=== PATIENT | female | born 1950 | race Caucasian/White ===

== ENCOUNTER 2017-10-23 13:01 | Day surgery (SDC) | payer OTHER ==
[~2017-10-23] VITALS: Ht 175.3 cm; Wt 89.8 kg
[~2017-10-23 13:01] MED LIST: ASPI-94 PO; DIVA250ER PO; HYDR12.56 PO; IBUP-238 PO; LISI2.5T3 PO; SIMV5TAB32 PO; TYLE3 PO
[2017-10-23] MEDS ORDERED: IOHEXOL 350 MG/ML 50 ML BTL (for Cath Lab) OTHER ONE (13:02)
[2017-10-23] MEDS ORDERED: SODIUM BICARBONATE 100 MEQ in D5W 1000 ML IV SCH (13:30)
[2017-10-23] MEDS ORDERED: SODIUM CHLORIDE 0.9% FLUSH 10 ML FLUSH IV FLUSH PRN ×2 (14:00)
[2017-10-23 14:31] LABS: BICARBONATE 27.4 MEQ/L (21.0-32.0); CALCIUM 9.5 MG/DL (8.5-10.1); CREATININE 1.05 MG/DL (0.50-1.00)
--- NOTE | 2017-10-23 14:57 | PD.VS.PN ---
Pre-operative Note Pre-operative diagnosis: B LE claudication Planned procedure: angiogram and potential intervention Interval History: Pt feeling well, ready for OR Labs: Laboratory Results Test 10/23/17 14:02 Anion Gap 9 MEQ/L (5-15) Blood Urea Nitrogen 23 MG/DL (7-18) Creatinine 1.05 MG/DL (0.50-1.00) Random Glucose 79 MG/DL (74-106) Calcium Level 9.5 MG/DL (8.5-10.1) Sodium Level 140 MEQ/L (136-145) Potassium Level 3.8 MEQ/L (3.5-5.1) Chloride Level 104 MEQ/L (98-107) Carbon Dioxide Level 27.4 MEQ/L (21.0-32.0) Blood: none needed Orders: NPO Operative site marked: No (bilateral) Consent: Informed consent has been obtained from Raine Ty. I have explained the procedure in detail and discussed the risks, benefits, and potential complications. All questions have been answered. Dk Ordaz MD Oct 23, 2017 14:57
[2017-10-23] MEDS ORDERED: HEPARIN-NS/PF FLUSH BAG 1,000 ML IV FLUSH ONE (15:03)
[2017-10-23] MEDS ORDERED: HEPARIN SODIUM - IV 10,000 UNITS/10 ML VIAL ONE (15:04)
[2017-10-23] MEDS ORDERED: MIDAZOLAM HCL 2 MG/2 ML VIAL ONE (15:04)
[2017-10-23] MEDS ORDERED: ONDANSETRON HCL 4 MG/2 ML VIAL ONE (15:21)
[2017-10-23 15:39] VITALS: BP 154/84; PULSE 81; RESP 18; TEMP 97.8; O2SAT 97
[2017-10-23] MEDS ORDERED: LISI-515 PO (15:46)
[2017-10-23] MEDS ORDERED: LEVOTAB PO (15:46)
[2017-10-23] MEDS ORDERED: HYDR25TA5 PO (15:46)
[2017-10-23] MEDS ORDERED: ASPI1TAB57 PO (15:46)
[2017-10-23] MEDS ORDERED: NIAC500T5 PO (15:46)
[2017-10-23] MEDS ORDERED: FISHCAP4 PO (15:46)
[2017-10-23] MEDS ORDERED: TRAM50TA PO (15:46)
[2017-10-23] MEDS ORDERED: VITA500012 PO (15:46)
[2017-10-23] MEDS ORDERED: REDPOW (15:46)
[2017-10-23] MEDS ORDERED: DIVA250T PO (15:46)
[2017-10-23] MEDS ORDERED: ALBU0.08 NEB (15:46)
[2017-10-23] MEDS ORDERED: ALLO300T2 PO (15:46)
--- NOTE | 2017-10-23 15:58 | HHI.PR ---
cc: Dk Ordaz MD Immediate Post Op Note Procedure Date: Oct 23, 2017 Pre Op Diagnosis: B LE claudication Post Op Diagnosis: B LE claudication Surgeon: Dk Ordaz Coal Feeder Operator(s): none Procedure: 1. Aortogram 2. R ESTEPHANIA orbital atherectomy and PHOTO FINISHER (7mm) 3. R DRAIN CLEANER PLUMBER Angioseal Findings: 1. Total occlusion L EIA 2. R ESTEPHANIA focal calcific stenosis Complications: none Specimen(s) removed: none Estimated blood loss: 10mL Anesthesia: MAC Drains: None Patient to: Other (DOCU) Patient Condition: Good Date/Time of Procedure: SEE SURGICAL CARE RECORD Dk Ordaz MD Oct 23, 2017 15:58
--- NOTE | 2017-10-23 16:10 | CATHPROC ---
[employer] HIS Report Study Information Study Number Admission Scheduled Start Study Start [id number] Oct 23 2017 1:01PM 10/23/2017 Oct 23 2017 3:04PM [place] [facility] Cath Endovascular Study Admit Source Facility Department [facility] - Peace Officer Physician and Clinical Staff Initial MD Ordaz, Dk Hospital Carrier Rachell Freedman,RN Recorder Casimiro Martinez,RT(R) Recorder Magdalene Valenzuela,RT(R) (BS) Scrub Yung Blackwell,RT(R) Procedures Performed Procedure Location (Site) Vessel Name Abdominal Angiogram Abd Aorta (A3) Aorta CARE TRANSITIONS NURSE Fem R. Com (R7) Femoral Art CARE TRANSITIONS NURSE Iliac R. Com. (R4) [place] Art. Wire insertion Fem Art (right) Femoral Art Equipment Time Roof Slater Description Size Mfg Part Number Used/Scraped [id number] 15:07 ANGIO-DYNAMICS OMNI FLUSH 65CM CATHETER FR 4 Used *[id number] DBP- CARDIOVASCULAR CATHETER, STEALTH SOLID 15:42 [id number] Used SYSTEMS INC. 2.0MM *[id number] CARDIOVASCULAR [id number] 15:37 WIRE, FIRM (VIPER) 335 Used SYSTEMS INC. *[id number] INTRODUCER SET, 15:07 COOK INC. FR 5 [id number] *[id number] Used MICROPUNCTURE, STIFFENED CATHETER, STRAIGHT TEMPO [id number] 15:40 CORDIS/ TREV FR 4 Used AQUA 65CM *[id number] 15:29 CORDIS/ TREV SHEATH, FR6 BRITE TIP 11CM FR 6 11CM [id number] Used WIRE, STORQ STANDARD MOD J [id number] 15:29 CORDIS/ TREV 300CM Used 300CM *[id number] 15:34 DAIG/ST. NOE MEDICAL ANGIOSEAL, FR6 VIP FR 6 Used *[id number] BALLOON, ADMIRAL EXTREME 7 [id number] 15:32 [employer]EC [employer] 130CM Used X 40 130CM *[id number] 15:07 [employer]. PACK, CCL CUSTOM * Used *[id number] 15:07 [employer] MEDICAL PRESSURE TUBING 48" 48" [id number] Used [id number] 15:07 NAMIC TUBING, HIGH PRESSURE 20" 20" Used *[id number] TUBING, PRESSURE INJECTION [id number] 15:07 NAMIC PACER 72" Used 72" *[id number] 15:07 NYCOMED OMNIPAQUE, 300 MG, 150ML 150ML [id number] Used 15:07 NYCOMED OMNIPAQUE, 300 MG, 50ML 50ML [id number] Used [id number] 15:07 BUCKLEY MEDICAL BLANKET,WARM AIR CCL * Used *[id number] 15:07 TERUMO MEDICAL SHEATH, FR4 TERUMO (10CM) FR 4 Used *[id number] WIRE, ANGLED GLIDE .035 [id number] 15:07 TERUMO MEDICAL/TREV 260CM Used 260CM *[id number] Equipment Model, Serial, Lot Number and Expiration Data Description Model Number Serial Number Lot Number Expiration Date ANGIOSEAL, FR6 VIP [id number] 07-03-2018 WIRE, FIRM (VIPER) 335 [id number] 06-02-2019 History: Allergies Allergy Reaction Codeine STATINS Labs Creatinine (mg/dl) 0.50-1.30 1.0 Medication Medication Total Dose (Bolus/Oral) Medication Total Dosage/Unit 1% XYLOCAINE 20 mL FENTANYL 50 mcg HEPARIN 3000 units VERSED 1 mg ZOFRAN 4 mg Medications (Bolus/Oral) Medication Time Given Dosage/Unit Administered By Reason VERSED 10/23/2017 3:17:13 PM 1 mg Rachell Freedman 1 mg VERSED given in lab by Rachell Freedman RN in Left Antecubital via Peripheral IV. FENTANYL 10/23/2017 3:18:21 PM 50 mcg Rachell Freedman 50 mcg FENTANYL given in lab by Rachell Freedman, JAQUELIN in Left Antecubital via Peripheral IV. 1% XYLOCAINE 10/23/2017 3:18:29 PM 20 mL Dk Ordaz 20 mL 1% XYLOCAINE given in lab by Dk Ordaz in Right Groin via Subcutaneous. ZOFRAN 10/23/2017 3:22:25 PM 4 mg Rachell Freedman 4 mg ZOFRAN given in lab by Rachell Freedman RN in Left Antecubital via Peripheral IV. HEPARIN 10/23/2017 3:28:40 PM 3000 units Rachell Freedman 3000 units HEPARIN given in lab by Rachell Freedman, JAQUELIN in Left Antecubital via Peripheral IV. Initial Case Assessment Cardiovascular NIBP 139/117 Edema Present Skin color Skin None Normal Warm Dry Circulatory - Right Pulses Femoral 1 Scale (0,1,2,3,4,d) Circulatory - Left Pulses Femoral 1 Scale (0,1,2,3,4,d) Circulatory - Lower Extremities Color Lower Right Color Lower Left Normal Normal Neurological State Oriented to time-place- Alert Moves all extremities person Chronological Log Time Study Chronological Log 15:01:46 Patient arrived via Bed. 15:01:50 Patient Name, D.O.B, / Armband Verified By R.N. 15:03:54 Consent signed by the physician and the patient and verified by the Peace Officer staff. 15:03:54 Pre-op and post- op instructions given; patient acknowledges understanding of instructions. 15:03:55 Verbal Stimulation=2 Physical Stimulation=2 Airway=2 Respiration=2 TOTAL=8. (0=absent, 1=li mited, 2=present) 15:03:57 Presedation assessment performed by Peace Officer RN. 15:04:00 Patient has been NPO for More than 6Hrs. 15:04:03 Patient Warmer Placed on the Table. Time Out. Correct patient, correct procedure, correct physician, power injector loaded with con trast with surgical team 15:05:39 present. Time Out Concurred by MD and individual staff in procedure. Vitals capture started with the following parameters, Patient=Adult, Interval=5 min, Initial Pr koetso=906 mmHg, 15:07:36 Deflation Rate=5 mmHg, Cuff placed on Right Ankle 15:08:08 Patient Warmer Placed on the Table. 15:08:09 HR=81 bpm, GXOL=895/117 mmhg, Resp=2 B/min, Rex=10, Gagnon=2 15:08:14 Liza Prominences Protected 15:08:14 A # 20 IV was noted in the Antecubital (left). Grade = 0 15:08:16 History and physical on the chart or being dictated. Assessment: Initial Case, YRLS=142/117 mmhg, Edema=None, Color=Normal, Skin = Warm, Dry Right Pulses: Femoral=1 Left Pulses: Femoral=1 15:08:17 Lower Right Extremities: Color=Normal Lower Left Extremities: Color=Normal Neurological: State=Alert, Ox3, WEBB 15:13:51 HR=82 bpm, KHBN=999/75 mmhg, SpO2=97.0 %, Resp=13 B/min, Rex=10, Gagnon=2 15:17:13 1 mg VERSED given in lab by Rachell Freedman RN in Left Antecubital via Peripheral IV. 15:18:11 HR=78 bpm, FLWY=488/83 mmhg, SpO2=96.0 %, Resp=17 B/min, Rex=10, Gagnon=2 15:18:11 Case Start 15:18:21 50 mcg FENTANYL given in lab by Rachell Freedman RN in Left Antecubital via Peripheral IV. 15:18:29 20 mL 1% XYLOCAINE given in lab by Dk Ordaz in Right Groin via Subcutaneous. 15:20:05 Access site was Right Femoral Artery. A INTRODUCER SET, MICROPUNCTURE, STIFFENED FR 5 was advanced into the Fem Art (right) using the 15:20:10 Percutaneous technique. A SHEATH, FR4 TERUMO (10CM) FR 4 was exchanged in the Fem Art (right). This was necessary in or fili to 15:20:16 accomodate a larger catheter. 15:22:25 4 mg ZOFRAN given in lab by Rachell Freedman RN in Left Antecubital via Peripheral IV. 15:23:47 HR=99 bpm, LASJ=234/117 mmhg, SpO2=93.0 %, Resp=29 B/min, Rex=10, Gagnon=2 A OMNI FLUSH 65CM CATHETER FR 4 was advanced over a wire. OMNIPAQUE, 300 MG, 150ML 150ML was us ed for 15:25:02 injections. 15:25:52 Through a OMNI FLUSH 65CM CATHETER FR 4, The Abdominal Aorta was injected with 10 cc's of c ontrast. 15:26:29 Through a OMNI FLUSH 65CM CATHETER FR 4, The Femoral Run-off was injected with 10 cc's per second. 15:28:21 HR=87 bpm, UUVH=128/86 mmhg, SpO2=89.0 %, Resp=16 B/min, Rex=10, Gagnon=2 15:28:40 3000 units HEPARIN given in lab by Rachell Freedman RN in Left Antecubital via Peripheral I V. A SHEATH, FR6 BRITE TIP 11CM FR 6 11CM was exchanged in the Fem Art (right). This was necessary in order to 15:30:47 accomodate a larger catheter. 15:30:54 A WIRE, STORQ STANDARD MOD J 300CM 300CM was inserted via Fem Art (right). 15:31:29 Reference ECG taken A BALLOON, ADMIRAL EXTREME 7 X 40 130CM 130CM was inserted over WIRE, STORQ STANDARD MOD J 300C M 15:31:46 300CM via the Iliac R. Com. (R4). 15:32:41 In the Fem R. Com (R7) a BALLOON, ADMIRAL EXTREME 7 X 40 130CM 130CM was inflated to 8 atms for 120 seconds. 15:33:18 HR=79 bpm, LVIU=110/86 mmhg, SpO2=93.0 %, Resp=18 B/min, Gagnon=2 15:38:00 Balloon Removed. 15:38:56 HR=95 bpm, SWGY=444/105 mmhg, SpO2=97.0 %, Resp=14 B/min, Rex=10, Gagnon=2 15:41:26 A WIRE, FIRM (VIPER) 335 was inserted via Fem Art (right). 15:41:47 An CATHETER, STEALTH SOLID 2.0MM catheter was inserted into the Fem Art (right). 15:43:22 HR=86 bpm, ANUK=346/88 mmhg, SpO2=93.0 %, Resp=22 B/min, Rex=10, Gagnon=2 15:44:49 CSI in progress 15:45:12 CSI in progress 15:46:04 CSI Catheter was removed A BALLOON, ADMIRAL EXTREME 7 X 40 130CM 130CM was inserted over WIRE, FIRM (VIPER) 335 via the Fem Art 15:47:20 (right). In the Iliac R. Com. (R4) a BALLOON, ADMIRAL EXTREME 7 X 40 130CM 130CM was inflated to 8 atms for 120 15:47:29 seconds. 15:48:17 HR=78 bpm, MYUH=893/88 mmhg, SpO2=95.0 %, Resp=10 B/min, Rex=10, Gagnon=2 15:53:11 ANGIOSEAL, FR6 VIP FR 6 placement in the Fem Art (right) 15:53:18 HR=71 bpm, RPVI=042/101 mmhg, SpO2=96.0 %, Resp=20 B/min, Rex=10, Gagnon=2 15:54:25 Case End 15:54:32 Catheter(s) removed without difficulty 15:55:08 No case complications noted. 15:55:19 Implantable Device card placed in patient's chart. 15:58:58 HR=70 bpm, RKUD=039/93 mmhg, SpO2=97.0 %, Resp=13 B/min, Rex=10, Gagnon=2 16:03:32 Patient moved to [facility] End Study - Contrast Media Used In Study Contrast Total Opened (mL) Total Used (mL) Total Wasted (mL) Omnipaque 35 35 0 End Study - Maximum Contrast Load Max Contrast Load (mL) 449.1 End Study - Radiation Exposure Fluoro Time (minutes) 4.5 End Study - Sheaths Sheaths Pulled By Sheath Hold Time (min) Dk Ordaz End Study - Patient Disposition Complications Transferred To Interventional Outcome No Peace Officer Holding successful
[2017-10-23] MEDS ORDERED: ONDANSETRON HCL 4 MG/2 ML VIAL IV PUSH ONE (16:15)
--- NOTE | 2017-10-25 10:42 | MP ---
cc: DK ORDAZ MD DATE OF SURGERY 10/25/2017 PRIMARY DIAGNOSIS Peripheral arterial occlusive disease, bilateral lower extremity claudication POSTOPERATIVE DIAGNOSIS Peripheral arterial occlusive disease, bilateral lower extremity claudication PROCEDURE 1. Aortogram 2. Right common iliac artery atherectomy and angioplasty. ATTENDING SURGEON Dk Ordaz MD ANESTHESIA Local with sedation INDICATIONS Ms. Ty is an elderly female with bilateral lower extremity claudication. She was taken to the operating room for angiographic evaluation and treatment. There was no prior catheterization based imaging available for my review. DESCRIPTION OF THE PROCEDURE Informed consent obtained from the patient. She was taken to the operating room and placed supine on the operating room table. An appropriate time-out was taken to ensure the patient's identity, operative site and planned procedure. Antibiotics were not necessary as this is a clean procedure without planned implantation of any foreign object. Everyone in the room agreed with the time-out and we proceeded. Her bilateral groins were prepped and draped and a 21 gauge micropuncture needle was used to access the right common femoral artery after infiltration of local anesthesia. This was exchanged using Seldinger technique for the micropuncture sheath through which a 0.035 Glidewire was introduced and the micropuncture sheath was exchanged for a 4-Bhutanese sheath. A VCF catheter was placed over the wire and through the sheath and an aortogram was obtained. The patient was systemically heparinized with 5000 of IV heparin. A Storq wire was introduced, VCF catheter was removed and the 4-Bhutanese sheath was exchanged for a 6-Bhutanese sheath. Using Berenstein catheter, we exchanged the Storq for a Viper wire and the common iliac artery was atherectomized using the orbital atherectomy system and then postdilated with a 7-mm balloon. The completion angiogram showed excellent any results without any recoil extravasation. The wire, catheter, and sheath removed and the groin was closed with Angio-Seal. There were The no complications. I was present and scrubbed for the entire procedure. INTERPRETATION IMAGES The patient has a patent terminal aorta, and common iliac arteries bilaterally. The distal right common iliac artery has high-grade calcific border-like stenosis. The external carotid and hypogastric artery are patent and the common femoral artery is patent. On the left-hand side, the common iliac artery is patent. The hypogastric artery is patent. The external iliac artery has a complete occlusion with reconstitution of the distal common femoral. After atherectomy and angioplasty, there was successful resolution of the stenosis without any extravasation. MD ANDREA Albert/TAJ /6:09 PM /10:19 AM
== END 2017-10-23 18:20 | disposition home or self-care (01) ==
LOC: HDOC 13:01 → HDIC 13:02 → HDOC 18:20
PROVIDERS: ATTEND Surgery
DX: I74.5 Embolism and thrombosis of iliac artery (principal); I73.9 Peripheral vascular disease, unspecified; M79.662 Pain in left lower leg; M79.661 Pain in right lower leg; F17.200 Nicotine dependence, unspecified, uncomplicated; I10 Essential (primary) hypertension
CPT/HCPCS: 0238T; 75625; 75710; 80048; 99152; C1714; C1725; C1760; C1769; C1893; G0269; J1644; J2250; J2405; J3010; Q9967